=== PATIENT | female | born 1930 | race Caucasian/White ===

== ENCOUNTER 2022-01-26 09:40 | Inpatient (IN) ==
[2022-01-26 11:03] LABS: Basophils # 0.1 10*3/uL (0.0-0.2); Basophils % 0.7 % (0.0-0.8); Eosinophils # 0.5 10*3/uL (0.0-0.87); Eosinophils % 6.2 % (0.00-10.9); Hemoglobin 10.8 GM/DL (12.0-16.0); Immature Granulocytes % 0.3 %; Immature Granulocytes Absolute 0.02 #; Lymphocytes # 1.6 10*3/uL (1.4-4.0); Lymphocytes % 21.1 % (21.3-54.2); Mean Corpuscular HGB Conc 31.8 GM/DL (32-36); Mean Platelet Volume 10.1 FL (9.6-12.0); Monocytes % 12.6 % (1.7-12.7); Neutrophils % 59.1 % (38.7-73.9); Platelet Count 230 T/CUMM (130-400); Red Blood Count 3.82 MC/CUMM (3.8-5.5); Red Cell Distribution Width 17.4 % (9.3-17.3); White Blood Count 7.6 T/CUMM (4-12)
[2022-01-26 11:29] LABS: Alanine Aminotransferase 20 U/L (13-56); Albumin 2.6 G/DL (3.4-5.0); Alkaline Phosphatase 113 U/L (45-117); Aspartate Amino Transferase 26 U/L (0-37); Bilirubin,Total < 0.39 MG/DL (0.20-1.00); Blood Urea Nitrogen 45 MG/DL (7-18); Calcium 9.4 MG/DL (8.5-10.1); Carbon Dioxide 26 MMOL/L (21-32); Estimated Glom Filtration Rate 13 ML/MIN; Glucose 116 MG/DL (74-106); Osmolality,Calculated 291.4 MOS/KG (273-304); Potassium 3.4 MMOL/L (3.5-5.1); Sodium 140 MMOL/L (136-145); Total Protein 7.5 G/DL (6.4-8.2)
[2022-01-26 11:36] LABS: Hyaline Casts,Urine 5 /LPF (0-3); RBC,Urine 3 /HPF (0-4); Squamous Epithelial Cell,Urine Many /HPF (0-10)
[2022-01-26 11:37] LABS: Bilirubin,Urine Negative (Negative); Blood, Urine Small mg/dL (Negative); Glucose,Urine (UA) Negative (Negative); Ketones,Urine Negative (Negative); Nitrite,Urine Negative (Negative); Protein,Urine 100 mg/dL (Negative); Urine Appearance Slightly Hazy (Clear); Urine Color Yellow (Yellow); Urine Specific Gravity 1.025 (1.001-1.035); Urine Urobilinogen 0.2 eU/dL (<2.0); Urine pH 5.5 (4.5-8.0)
[2022-01-26 11:46] LABS: PT Patient Result 50.5 SECS (10.5-12.0)
[2022-01-26] MEDS ORDERED: ZALEPLON 5 MG CAPSULE PO PRN (12:10)
[2022-01-26] MEDS ORDERED: ACETAMINOPHEN 325 MG TABLET PO PRN (12:10)
[2022-01-26] MEDS ORDERED: ONDANSETRON 4 MG/2 ML VIAL IV PRN (12:10)
[2022-01-26] MEDS ORDERED: LACTULOSE 20 GM/30 ML UDCUP PO PRN (12:10)
[2022-01-26] MEDS ORDERED: BISACODYL 5 MG TABLET PO PRN (12:10)
[2022-01-26] MEDS ORDERED: ALUMINUM/MAGNES/SIMETH MAX STR 30 ML UDCUP PO PRN (12:10)
[2022-01-26] MEDS ORDERED: hydrALAZINE 20 MG/1 ML VIAL IV PRN (12:10)
[2022-01-26] MEDS ORDERED: CALCIUM CARBONATE CHEW 500 MG TABLET PO PRN (12:10)
[2022-01-26] MEDS ORDERED: SIMETHICONE CHEW 125 MG TABLET PO PRN (12:23)
[2022-01-26] MEDS: ALBUTEROL/IPRATROPIUM 3 ML NEB RESP TX SCH ×2 (13:50→19:30)
[2022-01-26] MEDS: FUROSEMIDE 40 MG TABLET PO SCH (18:10)
[2022-01-27] MEDS: ALBUTEROL/IPRATROPIUM 3 ML NEB RESP TX SCH ×4 (00:55→19:25)
[2022-01-27 05:34] LABS: Basophils % 0.5 % (0.0-0.8); Eosinophils # 0.2 10*3/uL (0.0-0.87); Eosinophils % 2.7 % (0.00-10.9); Hematocrit 30.8 VOL% (35.7-47.0); Hemoglobin 9.7 GM/DL (12.0-16.0); Immature Granulocytes % 0.4 %; Immature Granulocytes Absolute 0.03 #; Lymphocytes # 1.5 10*3/uL (1.4-4.0); Lymphocytes % 17.3 % (21.3-54.2); Mean Corpuscular HGB Conc 31.5 GM/DL (32-36); Mean Corpuscular Volume 89.8 FL (87-102); Mean Platelet Volume 10.4 FL (9.6-12.0); Monocytes % 10.7 % (1.7-12.7); Neutrophils % 68.4 % (38.7-73.9); Platelet Count 211 T/CUMM (130-400); Red Blood Count 3.43 MC/CUMM (3.8-5.5); Red Cell Distribution Width 17.3 % (9.3-17.3); White Blood Count 8.5 T/CUMM (4-12)
[2022-01-27 05:59] LABS: Calcium 8.8 MG/DL (8.5-10.1); Osmolality,Calculated 292.1 MOS/KG (273-304); Potassium 2.9 MMOL/L (3.5-5.1); Thyroid Stimulating Hormone 0.064 uIU/ml (0.358-3.74)
[2022-01-27] MEDS ORDERED: POTASSIUM CHLORIDE 20 MEQ TABLET PO ONE (10:48)
[2022-01-27] MEDS: ASPIRIN EC 81 MG TABLET PO SCH (10:52)
[2022-01-27] MEDS: ROSUVASTATIN 20 MG TABLET PO SCH (10:52)
[2022-01-27] MEDS: CETIRIZINE 10 MG TABLET PO SCH (10:52)
[2022-01-27] MEDS: PANTOPRAZOLE 40 MG TABLET PO SCH (10:53)
[2022-01-27] MEDS: ISOSORBIDE MONONITRATE 30 MG TABLET PO SCH (10:53)
[2022-01-27] MEDS: FUROSEMIDE 40 MG TABLET PO SCH ×2 (10:53→16:15)
[2022-01-27 11:25] LABS: INR 4.2; PT Patient Result 42.4 SECS (10.5-12.0)
[2022-01-28] MEDS: ALBUTEROL/IPRATROPIUM 3 ML NEB RESP TX SCH ×2 (01:21→10:51)
[2022-01-28 05:35] LABS: Basophils % 0.6 % (0.0-0.8); Eosinophils # 0.5 10*3/uL (0.0-0.87); Hematocrit 30.9 VOL% (35.7-47.0); Hemoglobin 9.6 GM/DL (12.0-16.0); Immature Granulocytes % 0.4 %; Immature Granulocytes Absolute 0.03 #; Lymphocytes # 1.8 10*3/uL (1.4-4.0); Lymphocytes % 26.8 % (21.3-54.2); Mean Corpuscular HGB Conc 31.1 GM/DL (32-36); Mean Corpuscular Volume 88.5 FL (87-102); Mean Platelet Volume 10.4 FL (9.6-12.0); Monocytes % 13.5 % (1.7-12.7); Neutrophils % 51.7 % (38.7-73.9); Platelet Count 203 T/CUMM (130-400); Red Blood Count 3.49 MC/CUMM (3.8-5.5); Red Cell Distribution Width 17.5 % (9.3-17.3); White Blood Count 6.7 T/CUMM (4-12)
[2022-01-28 05:45] LABS: INR 4.2; PT Patient Result 42.2 SECS (10.5-12.0)
[2022-01-28 05:48] LABS: Calcium 8.8 MG/DL (8.5-10.1); Osmolality,Calculated 287.1 MOS/KG (273-304); Potassium 3.2 MMOL/L (3.5-5.1)
[2022-01-28] MEDS ORDERED: ALBUTEROL/IPRATROPIUM 3 ML NEB RESP TX PRN (07:04)
[2022-01-28] MEDS: FUROSEMIDE 40 MG TABLET PO SCH ×2 (09:24→16:09)
[2022-01-28] MEDS: ISOSORBIDE MONONITRATE 30 MG TABLET PO SCH (09:24)
[2022-01-28] MEDS: allopurinoL 100 MG TABLET PO SCH (09:24)
[2022-01-28] MEDS: ROSUVASTATIN 20 MG TABLET PO SCH (09:24)
[2022-01-28] MEDS: ASPIRIN EC 81 MG TABLET PO SCH (09:24)
[2022-01-28] MEDS: CETIRIZINE 10 MG TABLET PO SCH (09:24)
[2022-01-28] MEDS: PANTOPRAZOLE 40 MG TABLET PO SCH (09:24)
[2022-01-28] MEDS ORDERED: POTASSIUM CHLORIDE 20 MEQ TABLET PO ONE (10:40)
[2022-01-29 05:04] LABS: Basophils % 0.6 % (0.0-0.8); Eosinophils # 0.6 10*3/uL (0.0-0.87); Eosinophils % 8.5 % (0.00-10.9); Hematocrit 31.7 VOL% (35.7-47.0); Hemoglobin 9.9 GM/DL (12.0-16.0); Immature Granulocytes % 0.3 %; Immature Granulocytes Absolute 0.02 #; Lymphocytes # 1.8 10*3/uL (1.4-4.0); Lymphocytes % 26.4 % (21.3-54.2); Mean Corpuscular HGB Conc 31.2 GM/DL (32-36); Mean Corpuscular Volume 89.8 FL (87-102); Mean Platelet Volume 10.4 FL (9.6-12.0); Monocytes % 11.9 % (1.7-12.7); Neutrophils % 52.3 % (38.7-73.9); Platelet Count 198 T/CUMM (130-400); Red Blood Count 3.53 MC/CUMM (3.8-5.5); Red Cell Distribution Width 17.8 % (9.3-17.3); White Blood Count 6.6 T/CUMM (4-12)
[2022-01-29 05:12] LABS: INR 3.4; PT Patient Result 34.3 SECS (10.5-12.0)
[2022-01-29 05:20] LABS: Calcium 9.1 MG/DL (8.5-10.1); Osmolality,Calculated 283.4 MOS/KG (273-304); Potassium 3.6 MMOL/L (3.5-5.1)
[2022-01-29] MEDS: allopurinoL 100 MG TABLET PO SCH (10:20)
[2022-01-29] MEDS: FUROSEMIDE 40 MG TABLET PO SCH (10:20)
[2022-01-29] MEDS: PANTOPRAZOLE 40 MG TABLET PO SCH (10:20)
[2022-01-29] MEDS: CETIRIZINE 10 MG TABLET PO SCH (10:20)
[2022-01-29] MEDS: ASPIRIN EC 81 MG TABLET PO SCH (10:20)
[2022-01-29] MEDS: ISOSORBIDE MONONITRATE 30 MG TABLET PO SCH (10:20)
[2022-01-29] MEDS: ROSUVASTATIN 20 MG TABLET PO SCH (10:20)
[2022-01-29 12:38] VITALS: BP 146/54
[2022-02-03] MEDS ORDERED: ERGOCALCIFEROL 50,000 UNIT CAPSULE PO SCH (09:00)
== END 2022-01-29 14:11 | DRG 309 ==
LOC: N.EDINP 09:40 → N.ED 09:40 → N.TELEN 14:34
PROVIDERS: ADMIT Internal Medicine Cardiovascular Disease; ATTEND Internal Medicine Cardiovascular Disease